=== PATIENT | female | born 1960 | race Caucasian/White ===

== ENCOUNTER → 2016-07-23 | Outpatient (REF) | payer BC | LOC: M LAB REF 10:00 | PROVIDERS: ATTEND Physician Assistant | DX: R30.0 Dysuria (principal) ==

== ENCOUNTER → 2019-03-25 | Outpatient (REF) | payer BC | LOC: M LAB REF 16:32 | PROVIDERS: ATTEND Nurse Practitioner Family | DX: L08.9 Local infection of the skin and subcutaneous tissue, unspecified (principal) ==

== ENCOUNTER → 2019-08-20 | Outpatient (CLI) | payer BC ==
[~2019-08-20] MED LIST: ASPI81TA85 PO; DULO1CAP5 PO; EZET10TA21 PO; GNP250TA9 PO; L-LY500T14 PO; LEVO300T21 PO; LISI-538 PO; MENE0.3T PO; METF-839 PO; PRAV80TA2 PO; TOPA50TA8 PO; VITAD1000T PO
== END ==
LOC: M LABSMTC 10:34
PROVIDERS: ATTEND Anesthesiology
DX: Z01.818 Encounter for other preprocedural examination (principal); Z11.59 Encounter for screening for other viral diseases
CPT/HCPCS: C9803; U0003

== ENCOUNTER 2019-08-23 08:28 | Day surgery (SDC) | payer BC ==
[~2019-08-23] VITALS: Ht 167.6 cm; Wt 129.2 kg
[~2019-08-23 08:28] MED LIST changes: -L-LY500T14 PO; +LIDOCAINE 1% MDV 20ML VIAL SQ PRN
[2019-08-23] MEDS ORDERED: L-LY500T14 PO (09:05)
[2019-08-23] MEDS ORDERED: LR 1,000 ML IV ONE (09:45)
[2019-08-23] MEDS ORDERED: ONDANSETRON 4MG/2ML VIAL As Ordered ONE (10:28)
[2019-08-23] MEDS ORDERED: dexameTHASONE 4 MG/ML 1ML VIAL (J1100 PER 1MG) As Ordered ONE (10:28)
[2019-08-23] MEDS ORDERED: MIDAZOLAM INJ 2MG/2ML VIAL (J2250 PER 1MG) As Ordered ONE (10:28)
[2019-08-23] MEDS ORDERED: LIDOCAINE 2% 100MG/5ML SDV (FOR ANES.) As Ordered ONE (10:28)
[2019-08-23] MEDS ORDERED: fentaNYL 100 MCG/2 ML INJECTION (J3010) As Ordered ONE (10:28)
[2019-08-23] MEDS ORDERED: propofoL 200 MG/20 ML VIAL As Ordered ONE (10:28)
[2019-08-23] MEDS ORDERED: BUPIVACAINE/EPIN 0.25% 30 ML VIAL As Ordered ONE (11:12)
[2019-08-23] MEDS ORDERED: ACETAMINOPHEN 1000MG 100ML IV BTL (OFIRMEV) (J0131 PER 10MG) As Ordered ONE (11:18)
[2019-08-23] MEDS ORDERED: GLYCOPYRROLATE INJ 0.2 MG/ML 2 ML VIAL As Ordered ONE (11:41)
[2019-08-23] MEDS ORDERED: LR 1,000 ML IV SCH (12:15)
[2019-08-23] MEDS ORDERED: fentaNYL 100 MCG/2 ML INJECTION (J3010) IV PRN (12:15)
[2019-08-23] MEDS ORDERED: oxyCODONE 5MG TAB PO PRN ×2 (12:15)
[2019-08-23] MEDS ORDERED: HYDROMORPHONE HCL 0.5 MG/ 0.5 ML SYRINGE (J1170 PER 1) IV PRN (12:15)
[2019-08-23] MEDS ORDERED: ONDANSETRON 4MG/2ML VIAL IV PRN (12:15)
--- NOTE | 2019-08-23 12:27 | RO ---
DATE OF PROCEDURE: 08/23/2019 PREPROCEDURE DIAGNOSIS: Left carpal tunnel syndrome and cubital syndrome POSTPROCEDURE DIAGNOSIS: Left carpal tunnel syndrome and cubital syndrome PROCEDURE: Left endoscopic carpel tunnel release and open cubital tunnel release. SURGEON: Dr. Fco Fraser. WHIP OPERATOR: ANESTHESIA: General. INDICATION: This is a 58-year-old female who failed nonoperative modes of treatment. We discussed the risks and benefits of surgical release including but not limited to infection, damage to nerves and vessels, incomplete relief and the patient wished to proceed. PREOPERATIVE ANTIBIOTICS: None. TOURNIQUET TIME: 30 ESTIMATED BLOOD LOSS: Minimal. SPECIMENS: None. DESCRIPTION OF PROCEDURE: The patient was brought back to the operating room (OR) in the supine position. Underwent general anesthesia, at which point, the left arm was prepped and draped in the usual fashion. We then had time-out to confirm site and surgery. We injected 30 mL of 0.25% Marcaine with epinephrine surrounding the incisions. We then prepped and draped the left arm in the usual fashion. Had time-out once again. Elevated the tourniquet up to 250 mmHg. We then made a transverse incision overlying the palmaris longus, sharply dissected and retracted it radially and we encountered the antebrachial fascia. We sharply incised this, elevated with two prong skin hook and inserted the dilator, then the synovial stripper and endoscopic camera. Once the median nerve was visualized and safely out of view, we released it from distal to proximal. Once it was adequately release, we irrigated the wound thoroughly and closed with #3-0 Vicryl, #3-0 Prolene, Mastisol, Steri-Strips, gauze, and Tegaderm. We then turned our attention to the elbow, made a longitudinal incision between the medial epicondyle and olecranon. Sharply dissected through subcutaneous tissues, careful to monitor for the medial and antebrachial cutaneous nerve. We identified the ulnar nerve at the proximal extent of the excision anterior to medial head of triceps. We released it proximally off the intermuscular septum and distally through Arreguin ligament and through superficial and deep fascia at flexor carpi ulnaris (FCU) at which point we then did a thorough ulnar neurolysis, and anteriorly transposed the nerve closing the Arreguin ligament behind it with a #3-0 Prolene. We then ranged the elbow. We were happy with release, however it started to sublux posteriorly over the medial condyle. We then created an adipofascial sling with a #3-0 Vicryl. We were happy with the release and control of the nerve at this point. We then irrigated the wound thoroughly and closed with #3-0 Vicryl, #3-0 Monocryl, Mastisol, Steri-Strips, gauze, and Tegaderm, Kerlix and Eloy. The tourniquet was let down. The patient was awakened and taken to the post anesthesia care unit (PACU) in stable condition. POSTOP PLAN: The patient will work on pain control and range of motion, and we will see her in the office for a 2-week visit for clinical check. MEGHANN
[2019-08-23 14:00] VITALS: BP 162/88
== END 2019-08-23 14:20 | disposition home or self-care (01) ==
LOC: M SDC 08:28
PROVIDERS: ATTEND Orthopaedic Surgery Hand Surgery
DX: G56.02 Carpal tunnel syndrome, left upper limb (principal); G56.22 Lesion of ulnar nerve, left upper limb; E11.9 Type 2 diabetes mellitus without complications; E03.9 Hypothyroidism, unspecified; F41.9 Anxiety disorder, unspecified; F32.9 Major depressive disorder, single episode, unspecified; G43.909 Migraine, unspecified, not intractable, without status migrainosus; Z79.82 Long term (current) use of aspirin; Z79.899 Other long term (current) drug therapy; Z79.84 Long term (current) use of oral hypoglycemic drugs
CPT/HCPCS: 29848; 64718; J0131; J1100; J2250; J2405; J3010

== ENCOUNTER → 2020-04-19 | Outpatient (CLI) | payer SELFPAY ==
[~2020-04-19] MED LIST changes: -ASPI81TA85 PO; +ASPI81TA86 PO; +D31000TA2 PO; +L-LY500T14 PO; -LIDOCAINE 1% MDV 20ML VIAL SQ PRN; -LISI-538 PO; +LISI20TA33 PO; -VITAD1000T PO
== END ==
LOC: M LABSMTC 10:12
PROVIDERS: ATTEND Pediatrics
DX: Z20.822 Contact with and (suspected) exposure to COVID-19 (principal)

== ENCOUNTER 2020-08-25 14:34 | Emergency (ER) | payer BC, OTHER ==
[~2020-08-25] VITALS: Ht 167.6 cm; Wt 133.3 kg
[2020-08-25] MEDS ORDERED: FLUO40CA PO (14:46)
--- NOTE | 2020-08-25 16:26 | REP ---
INDICATION: edema. COMPARISON: None. TECHNIQUE: Portable FINDINGS: The technique utilized in obtaining the radiograph has magnified the cardiac silhouette and accentuated the interstitial markings. There is cardiomegaly accentuated by technique. There is a subtle increase in the interstitial markings throughout the lung sandhu with a haziness throughout the pulmonary vascularity. Mild pulmonary vascular redistribution cannot be ruled out. The exam is portable. There are no patchy opacities or pleural effusion. The osseous structures are normal. IMPRESSION: Cardiomegaly and possible mild interstitial edema. PA and lateral views of the chest are suggested. <Electronically signed by Lance Lynch > 08/25/20 [id number]
--- NOTE | 2020-08-25 16:41 | REP ---
INDICATION: swelling, no pain, no redness. COMPARISON: None. TECHNIQUE: Multiple ultrasonographic images of the deep venous structures of the left lower extremity were obtained from the inguinal ligament to the ankle. Venous compression techniques, color doppler imaging, and augmentation techniques were also obtained where appropriate. As per the ACR guidelines the anterior tibial vein can not be effectively evaluated. Only compression techniques in the calf on the peroneal and posterior tibial veins was attempted/performed. FINDINGS: There is no abnormal echogenic material seen within any of the visualized deep venous structures that would suggest acute thrombosis. Coaptation is unremarkable throughout. Doppler interrogation shows an expected response to respiratory variability and augmentation in the thigh. Compression techniques in the calf were unobtainable. The color flow images show what appears to be a normal vascular pattern throughout the thigh. IMPRESSION: There is no ultrasonographic evidence of deep venous thrombosis involving any of the visualized deep venous structures of the left lower extremity as described above. Due to technical parameters calf vein DVT can not be ruled out. <Electronically signed by Lance Lynch > 08/25/20 [id number]
[2020-08-25 17:01] LABS: BASO # 0.1 10^3/uL (0.0-0.2); BASO % 0.5 % (0.0-1.0); EOS # 0.4 10^3/uL (0.0-0.5); EOS % 3.8 % (0.0-3.0); HEMATOCRIT 43.1 % (36.0-47.0); HEMOGLOBIN 13.9 g/dl (12.0-15.5); LYMPH # 2.1 10^3/uL (1.5-5.0); LYMPH % 20.7 % (24.0-44.0); MEAN CORPUSCULAR HEMOGLOBIN 28.5 pg (27.0-33.0); MEAN CORPUSCULAR HGB CONC 32.3 g/dl (32.0-36.5); MEAN CORPUSCULAR VOLUME 88.3 fl (80.0-96.0); MONO # 0.5 10^3/uL (0.0-0.8); MONO % 5.3 % (2.0-8.0); NEUTROPHILS % 69.4 % (36.0-66.0); PLATELET COUNT, AUTOMATED 244 10^3/uL (150-450); RED BLOOD COUNT 4.88 10^6/uL (4.00-5.40); WHITE BLOOD COUNT 10.1 10^3/uL (4.0-10.0)
[2020-08-25 17:29] LABS: ALT/SGPT 29 U/L (12-78); BILIRUBIN,TOTAL 0.4 MG/DL (0.2-1.0); BLOOD UREA NITROGEN 17 MG/DL (7-18); CALCIUM LEVEL 9.8 MG/DL (8.8-10.2); CARBON DIOXIDE LEVEL 27 MEQ/L (21-32); CHLORIDE LEVEL 107 MEQ/L (98-107); CREATININE FOR GFR 0.81 MG/DL (0.55-1.30); GLOMERULAR FILTRATION RATE > 60.0 (>45); GLUCOSE, FASTING 100 MG/DL (70-100); NT-PRO BNP 43 PG/ML (<125); POTASSIUM SERUM 5.2 MEQ/L (3.5-5.1); SODIUM LEVEL 139 MEQ/L (136-145); TOTAL PROTEIN 7.9 GM/DL (6.4-8.2)
[2020-08-25 18:27] VITALS: BP 188/90
[2020-08-25] MEDS ORDERED: FURO20TA2 PO (18:35)
[2020-08-25 19:52] VITALS: BP 172/88
--- NOTE | 2020-08-25 21:13 | ECGEPIP ---
[facility] - ED Test Date: 2020-08-25 Pat Name: ASHOK HOLLAND Department: Room: - Gender: Female Manager Of Internal Audit: HC : 1960 Requested By: BRUNO Irene Order Number: [id number] Reading MD: Anastasiia Bardales Measurements Intervals Lee Rate: 57 P: 22 CT: 184 QRS: -10 QRSD: 78 T: 55 QT: 416 QTc: 404 Interpretive Statements Sinus bradycardia Inferior infarct , age undetermined Anterior infarct , age undetermined NSTTW abnormalities no prior Electronically Signed on 08-25-2020 21:13:26 EDT by Anastasiia Bardales
--- NOTE | 2020-08-26 14:07 | ED PDOC ---
Post-Departure Follow-Up jane sweet faxed formal report of cxr-p for fu Judy Santos MD Aug 26, 2020 14:07
== END 2020-08-25 19:58 | disposition home or self-care (01) ==
LOC: M ED 14:34
DX: R60.9 Edema, unspecified (principal); I10 Essential (primary) hypertension; R00.1 Bradycardia, unspecified; E78.5 Hyperlipidemia, unspecified; E03.9 Hypothyroidism, unspecified; Z79.890 Hormone replacement therapy; Z79.82 Long term (current) use of aspirin; Z79.899 Other long term (current) drug therapy; Z88.0 Allergy status to penicillin; Z88.2 Allergy status to sulfonamides; Z88.8 Allergy status to other drugs, medicaments and biological substances

== ENCOUNTER → 2020-10-20 | Outpatient (REF) ==
[~2020-10-20] MED LIST changes: +FLUO40CA PO; +FURO20TA2 PO
== END ==
LOC: M LAB 15:23
PROVIDERS: ATTEND Nurse Practitioner Adult Health
DX: Z00.00 Encounter for general adult medical examination without abnormal findings (principal)

== ENCOUNTER → 2020-10-25 | Outpatient (REF) | payer OTHER ==
[2020-10-25 18:18] LABS: AMORPHOUS SEDIMENT SMALL (NEGATIVE); APPEARANCE, URINE TURBID (CLEAR); BACTERIA, URINE AUTO NEGATIVE (NEGATIVE); BILIRUBIN, URINE AUTO NEGATIVE (NEGATIVE); BLOOD, URINE BLOOD 3+ (NEGATIVE); COLOR, URINE AMBER (YELLOW); GLUCOSE, URINE (UA) AUTO NEGATIVE (NEGATIVE); KETONE, URINE AUTO NEGATIVE (NEGATIVE); LEUKOCYTE ESTERASE, URINE AUTO NEGATIVE (NEGATIVE); MUCUS, URINE SMALL (NEGATIVE); NITRITE, URINE AUTO NEGATIVE (NEGATIVE); PROTEIN, URINE AUTO 2+ mg/dL (NEGATIVE); RBC, URINE AUTO TNTC /HPF (0-3); SPECIFIC GRAVITY URINE AUTO 1.027 (1.002-1.035); SQUAMOUS EPITHELIAL CELL UR AU 11 /HPF (0-6); UROBILINOGEN, URINE AUTO 0.2 mg/dL (0.0-2.0); WBC, URINE AUTO 21 /HPF (0-3)
== END ==
LOC: M LAB REF 18:00
PROVIDERS: ATTEND Physician Assistant
DX: R30.0 Dysuria (principal)

== ENCOUNTER → 2021-02-12 | Outpatient (REF) | LOC: M LABSMTC 09:37 | PROVIDERS: ATTEND Pediatrics | DX: Z20.828 Contact with and (suspected) exposure to other viral communicable diseases (principal) ==

== ENCOUNTER → 2021-12-10 | Outpatient (CLI) | payer OTHER ==
[~2021-12-10] MED LIST changes: -D31000TA2 PO; +VITA100093 PO
[2021-12-10 14:36] LABS: HEMATOCRIT 41.6 % (36.0-47.0); HEMOGLOBIN 13.6 g/dl (12.0-15.5); MEAN CORPUSCULAR HEMOGLOBIN 28.3 pg (27.0-33.0); MEAN CORPUSCULAR HGB CONC 32.7 g/dl (32.0-36.5); MEAN CORPUSCULAR VOLUME 86.5 fl (80.0-96.0); PLATELET COUNT, AUTOMATED 281 10^3/uL (150-450); RED BLOOD COUNT 4.81 10^6/uL (4.00-5.40); WHITE BLOOD COUNT 9.8 10^3/uL (4.0-10.0)
[2021-12-10 15:23] LABS: ALBUMIN 3.8 GM/DL (3.2-5.2); ALT/SGPT 20 U/L (12-78); AMYLASE 27 U/L (25-115); BILIRUBIN,TOTAL 0.4 MG/DL (0.2-1.0); BLOOD UREA NITROGEN 11 MG/DL (7-18); CALCIUM LEVEL 9.4 MG/DL (8.8-10.2); CARBON DIOXIDE LEVEL 29 MEQ/L (21-32); CHLORIDE LEVEL 104 MEQ/L (98-107); CREATININE FOR GFR 0.75 MG/DL (0.55-1.30); GLOMERULAR FILTRATION RATE > 60.0 (>45); GLUCOSE, FASTING 85 MG/DL (70-100); LIPASE 125 U/L (73-393); POTASSIUM SERUM 4.1 MEQ/L (3.5-5.1); SODIUM LEVEL 137 MEQ/L (136-145); TOTAL PROTEIN 7.8 GM/DL (6.4-8.2)
== END ==
LOC: M RAD 12:43
PROVIDERS: ATTEND Physician Assistant
DX: R10.9 Unspecified abdominal pain (principal); Z90.49 Acquired absence of other specified parts of digestive tract; R14.0 Abdominal distension (gaseous); K76.0 Fatty (change of) liver, not elsewhere classified

== ENCOUNTER → 2021-12-28 | Outpatient (CLI) | payer OTHER | LOC: M PLAIMG 08:19 | PROVIDERS: ATTEND Physician Assistant | DX: R10.9 Unspecified abdominal pain (principal); M47.9 Spondylosis, unspecified; Z90.710 Acquired absence of both cervix and uterus; Z98.890 Other specified postprocedural states ==

== ENCOUNTER → 2024-12-25 | Outpatient (CLI) | payer MEDICARE, OTHER ==
[~2024-12-25] MED LIST changes: -EZET10TA21 PO; +EZET10TA57 PO; -PRAV80TA2 PO; +PRAV80TA75 PO
== END ==
LOC: M WHC 09:06
DX: Z12.31 Encounter for screening mammogram for malignant neoplasm of breast (principal)